=== PATIENT | female | born 1990 | race Caucasian/White ===

== ENCOUNTER → 2024-07-06 10:41 | Outpatient (REF) | payer OTHER, SELFPAY | LOC: HWRAD 10:41 | PROVIDERS: ATTENDING PHYSICIAN Student in an Organized Health Care Education/Training Program | DX: R07.89 Other chest pain (principal); M54.6 Pain in thoracic spine | CPT/HCPCS: 71046; 72072 ==

== ENCOUNTER → 2025-01-02 12:58 | Outpatient (REF) | payer OTHER, SELFPAY | LOC: HWRCS 12:58 | PROVIDERS: ATTENDING PHYSICIAN Internal Medicine Cardiovascular Disease; FAMILY PHYSICIAN Student in an Organized Health Care Education/Training Program | DX: R94.31 Abnormal electrocardiogram [ECG] [EKG] (principal); R01.1 Cardiac murmur, unspecified | CPT/HCPCS: 93306 ==